=== PATIENT | male | born 1995 | race Caucasian/White ===

== ENCOUNTER 2017-01-12 15:06 | Emergency (ER) | payer BC ==
[~2017-01-12] VITALS: Ht 170.2 cm; Wt 56.7 kg
== END 2017-01-12 17:16 | disposition left against medical advice (07) ==
LOC: CED 15:06
DX: J45.909 Unspecified asthma, uncomplicated (principal); F17.210 Nicotine dependence, cigarettes, uncomplicated
CPT/HCPCS: 94640; 99284

== ENCOUNTER 2017-01-18 17:00 | Emergency (ER) | payer BC ==
[~2017-01-18] VITALS: Ht 170.2 cm; Wt 56.7 kg
--- NOTE | ~2017-01-18 | CR63 ---
[facility] A Service of [facility] RADIOLOGY TEXT RESULTS PATIENT: GEOFF GARCIA LOCATION: [facility] : [birth year] UNIT #: [id number] AGE: [address]: Yoshi Mayorga MD SEX: M ORDER DR: [id number] [facility] [address] [place], [place] [address] [id number] E MR#: [id number] Acc #: [id number] NAME: GEOFF GARCIA : 1995 SEX: M STUDY DATE/TIME: 01/18/2017 19:35 UNIT: [facility] ROOM: STUDY DESCRIPTION: CR Chest 2 View Attending Physician: Yoshi Mayorga M.D. Ordering Physician: Ed Doc Marisela Conklin Primary Care Physician: No Primary Care Physician MEDICAL IMAGING REPORT This report is preliminary unless electronic signature is present EXAM Two-view chest. INDICATIONS Shortness of air for 2 months. Chest pain. FINDINGS PA and lateral views of the chest compared to 04/01/2016. Heart and mediastinal contours are normal. The lungs are clear. No pneumothorax. IMPRESSION Hyperinflated lungs can be seen in the setting of obstructive lung disease (i.e. asthma). No focal consolidation. Dictated by... Juan Carlos Reeves M.D. THIS IS AN ELECTRONICALLY VERIFIED REPORT Juan Carlos Reeves M.D. at 01/19/2017 3:57 PM LINETTE/saul TD: 01/19/2017 14:30 JOB #: [id number] MEDICAL IMAGING REPORT Page 1 of 1 COPY
== END 2017-01-18 21:30 | disposition home or self-care (01) ==
LOC: CED 17:00
DX: J45.20 Mild intermittent asthma, uncomplicated (principal); F17.200 Nicotine dependence, unspecified, uncomplicated
CPT/HCPCS: 71020; 94640; 99285